=== PATIENT | male | born 1935 | race Caucasian/White ===

== ENCOUNTER 2019-07-16 05:50 | Day surgery (SDC) | payer MEDICARE ==
[2019-07-15 10:24] LABS: BASOPHILS % (AUTO) 0.5 % (0-1); EOSINOPHILS # (AUTO) 0.1 X10'3 (0-0.9); EOSINOPHILS % (AUTO) 1.9 % (0-6); HEMATOCRIT 42.1 % (42.0-52.0); HEMOGLOBIN 13.7 g/dl (14.0-17.9); LYMPHOCYTES # (AUTO) 1.3 X10'3 (1.1-4.8); MEAN CORPUSCULAR HEMOGLOBIN 29.3 PG (27.0-31.0); MEAN CORPUSCULAR HGB CONC 32.6 g/dL (33.0-36.5); MEAN CORPUSCULAR VOLUME 89.7 FL (78-98); MEAN PLATELET VOLUME 9.1 FL (7.4-10.4); MONOCYTES # (AUTO) 0.5 X10'3 (0-0.9); MONOCYTES % (AUTO) 8.2 % (2-12); NEUTROPHILS # (AUTO) 4.3 X10'3 (1.8-7.7); NEUTROPHILS % (AUTO) 68.4 % (42-75); PLATELET COUNT 215 X10'3 (140-440); RED BLOOD COUNT 4.69 X10'6 (4.70-6.10); RED CELL DISTRIBUTION WIDTH 14.4 % (11.5-14.5); WHITE BLOOD COUNT 6.3 X10'3 (4.5-11.0)
[2019-07-15 10:40] LABS: ALANINE AMINOTRANSFERASE 26 U/L (12-78); ALBUMIN 3.5 G/DL (3.4-5.0); ALKALINE PHOSPHATASE 112 IU/L (46-116); ANION GAP 5 (8-16); ASPARTATE AMINO TRANSFERASE 14 U/L (10-37); BILIRUBIN,TOTAL 0.5 MG/DL (0.1-1.0); BLOOD UREA NITROGEN 16 MG/DL (7-18); BUN/CREATININE RATIO 19.3 (5.4-32.0); CALCIUM 8.7 MG/DL (8.5-10.1); CHLORIDE 108 MMOL/L (99-107); CREATININE 0.83 MG/DL (0.60-1.10); GLUCOSE 138 MG/DL (70-104); PARTIAL THROMBOPLASTIN TIME 28 SECONDS (22-32); POTASSIUM 4.5 MMOL/L (3.5-5.1); SODIUM 140 MMOL/L (135-145); TOTAL CARBON DIOXIDE 27.3 MMOL/L (24-32); TOTAL PROTEIN 6.9 G/DL (6.4-8.2); eGFR 89 ML/MIN
[~2019-07-16] VITALS: Ht 172.7 cm; Wt 114.9 kg
[2019-07-16] VITALS (16 sets, daily range): BP systolic 103–150; BP diastolic 53–76
[2019-07-16] MEDS ORDERED: LOSA50TA3 PO (06:12)
[2019-07-16] MEDS ORDERED: METF1000 PO (06:12)
[2019-07-16] MEDS ORDERED: VITAMIN D (06:12)
[2019-07-16] MEDS ORDERED: AMLO10TA13 PO (06:12)
[2019-07-16] MEDS ORDERED: CARV3.12 PO (06:12)
[2019-07-16] MEDS ORDERED: ATOR40TA PO (06:12)
[2019-07-16] MEDS ORDERED: dextrose 50%-water 50ml dispensing syringe IV PRN ×2 (06:25)
[2019-07-16] MEDS ORDERED: insulin Lispro (HumaLOG) vial - multi-dose SQ SCH (06:25)
[2019-07-16] MEDS ORDERED: dextrose ORAL solution 15 GM/59 ML bottle PO PRN ×2 (06:25)
[2019-07-16] MEDS ORDERED: nitroGLYCERIN 0.4mg SUBLingual tab SL PRN ×2 (06:25→10:15)
[2019-07-16] MEDS ORDERED: glucagon, human recombinant 1mg kit SUBCUT PRN (06:25)
[2019-07-16] MEDS ORDERED: diphenhydrAMINE 25mg capsule PO PRN (06:30)
[2019-07-16] MEDS ORDERED: normal saline 1,000 ML IV SCH (06:30)
[2019-07-16] MEDS ORDERED: LORazepam 0.5 MG tablet PO PRN (06:30)
[2019-07-16] MEDS ORDERED: iohexol 350 MG/ML 50ML vial IV ONE ×2 (08:45→09:20)
[2019-07-16] MEDS ORDERED: LIDOcaine 1% (10mg/ml)w/preservative injection 20ml MDV ONE (08:45)
[2019-07-16] MEDS ORDERED: iohexol 350MG/ML 100ml bottle IV ONE (08:45)
[2019-07-16] MEDS ORDERED: midazolam 2 mg/2 ml injection ONE (08:45)
[2019-07-16] MEDS ORDERED: fentaNYL/PF 50MCG/1 ML 2ML syringe ONE (08:45)
[2019-07-16] MEDS ORDERED: heparin 1,000 UNITS/NS 500ml 500 ML ONE ×2 (08:46)
[2019-07-16] MEDS ORDERED: HYDROcodone/acetaminophen 5mg/325mg tablet PO PRN (10:15)
[2019-07-16] MEDS ORDERED: OXAZEpam 15mg capsule PO PRN (10:15)
[2019-07-16] MEDS ORDERED: ondansetron/PF 4mg/2ml inj IV PRN (10:15)
[2019-07-16] MEDS ORDERED: normal saline 1000ml 1,000 ML IV SCH (10:15)
[2019-07-16] MEDS ORDERED: HYDROcodone/acetaminophen 10/325mg tab PO PRN (10:15)
[2019-07-16] MEDS ORDERED: proCHLORperazine 10 MG/2 ml inj IV PRN (10:15)
--- NOTE | 2019-07-16 14:29 | NUR ---
Problems reprioritized. Patient report given, questions answered & plan of care reviewed with SARAY TINAJERO.
[2019-07-16] MEDS ORDERED: insulin glargine (Lantus) pen - multi-dose SQ SCH (21:00)
== END 2019-07-16 16:00 | disposition home or self-care (01) ==
LOC: SSTAY O 05:50
PROVIDERS: ATTEND Internal Medicine Cardiovascular Disease
DX: I25.10 Atherosclerotic heart disease of native coronary artery without angina pectoris (principal); I10 Essential (primary) hypertension; E11.9 Type 2 diabetes mellitus without complications; K21.9 Gastro-esophageal reflux disease without esophagitis; E78.5 Hyperlipidemia, unspecified; I47.1 Supraventricular tachycardia; M19.90 Unspecified osteoarthritis, unspecified site; E66.9 Obesity, unspecified; Z68.38 Body mass index [BMI] 38.0-38.9, adult; Z79.899 Other long term (current) drug therapy; Z79.84 Long term (current) use of oral hypoglycemic drugs; Z98.890 Other specified postprocedural states; Z79.01 Long term (current) use of anticoagulants
CPT/HCPCS: 36415; 71046; 80053; 82948; 83880; 84439; 84443; 84480; 85025; 85610; 85730; 93005; 93459; 93567; 99152; 99153; C1760; C1769; J1644; J2001; J2250; J3010; J7030; Q0163; Q9967; 93458; A4620; A6258

== ENCOUNTER 2022-07-26 09:26 | Day surgery (SDC) | payer MEDICARE ==
[2022-07-19 09:26] LABS: BASOPHILS % (AUTO) 0.4 % (0-1); EOSINOPHILS # (AUTO) 0.1 X10'3 (0-0.9); EOSINOPHILS % (AUTO) 1.1 % (0-6); HEMATOCRIT 43.7 % (42.0-52.0); HEMOGLOBIN 14.8 g/dl (14.0-17.9); LYMPHOCYTES # (AUTO) 1.1 X10'3 (1.1-4.8); LYMPHOCYTES % (AUTO) 14.6 % (21-51); MEAN CORPUSCULAR HEMOGLOBIN 30.5 PG (27.0-31.0); MEAN CORPUSCULAR HGB CONC 33.7 g/dL (33.0-36.5); MEAN CORPUSCULAR VOLUME 90.4 FL (78-98); MEAN PLATELET VOLUME 9.2 FL (7.4-10.4); MONOCYTES # (AUTO) 0.5 X10'3 (0-0.9); MONOCYTES % (AUTO) 6.5 % (2-12); NEUTROPHILS # (AUTO) 5.8 X10'3 (1.8-7.7); NEUTROPHILS % (AUTO) 77.4 % (42-75); PLATELET COUNT 178 X10'3 (140-440); RED BLOOD COUNT 4.84 X10'6 (4.70-6.10); RED CELL DISTRIBUTION WIDTH 15.2 % (11.5-14.5); WHITE BLOOD COUNT 7.5 X10'3 (4.5-11.0)
[2022-07-19 09:38] LABS: ALANINE AMINOTRANSFERASE 23 U/L (12-78); ALBUMIN 3.6 G/DL (3.4-5.0); ALBUMIN/GLOBULIN RATIO 1.1 (1.1-1.5); ALKALINE PHOSPHATASE 114 IU/L (46-116); ANION GAP 10 (8-16); ASPARTATE AMINO TRANSFERASE 17 U/L (10-37); BILIRUBIN,TOTAL 0.7 MG/DL (0.1-1.0); BLOOD UREA NITROGEN 13 MG/DL (7-18); BUN/CREATININE RATIO 14.6 (5.4-32.0); CALCIUM 8.6 MG/DL (8.5-10.1); CHLORIDE 109 MMOL/L (99-107); CREATININE 0.89 MG/DL (0.60-1.10); GLUCOSE 115 MG/DL (70-104); POTASSIUM 3.8 MMOL/L (3.5-5.1); SODIUM 142 MMOL/L (135-145); TOTAL CARBON DIOXIDE 22.6 MMOL/L (24-32); eGFR 81 ML/MIN
[2022-07-19 09:52] LABS: APTT 27 SECONDS (22-32)
[2022-07-19 10:49] LABS: ANISOCYTOSIS 2+; ELLIPTOCYTES FEW; GIANT PLATELET FEW; PLATELET ESTIMATE NORMAL
[~2022-07-26] VITALS: Ht 175.3 cm; Wt 105.9 kg
[2022-07-26] VITALS (12 sets, daily range): BP systolic 117–152; BP diastolic 67–88
[~2022-07-26 09:26] MED LIST: AMLO10TA13 PO; ATOR40TA PO; CARV3.12 PO; LOSA50TA3 PO; METF1000 PO; VITAMIN D
[2022-07-26] MEDS ORDERED: normal saline 1,000 ML IV SCH (09:45)
[2022-07-26] MEDS ORDERED: LORazepam 0.5 MG tablet PO PRN (09:45)
[2022-07-26] MEDS ORDERED: nitroGLYCERIN 0.4mg SUBLingual tab SL PRN ×2 (09:45→13:40)
[2022-07-26] MEDS ORDERED: diphenhydrAMINE 25mg capsule PO PRN (09:45)
[2022-07-26] MEDS ORDERED: CLOP75TA34 PO (10:38)
[2022-07-26] MEDS ORDERED: ASPI-1071 PO (10:38)
[2022-07-26] MEDS ORDERED: fentaNYL/PF 50MCG/1 ML 2ML syringe ONE (11:55)
[2022-07-26] MEDS ORDERED: midazolam 1 mg/ML 2ml injection ONE (11:55)
[2022-07-26] MEDS ORDERED: iohexol 350MG/ML 100ml bottle IV ONE ×2 (11:55)
[2022-07-26] MEDS ORDERED: LIDOcaine 1%/PF 5ML 10 MG/ML VIAL ONE (11:55)
[2022-07-26] MEDS ORDERED: ondansetron/PF 4mg/2ml inj IV PRN (13:40)
[2022-07-26] MEDS ORDERED: normal saline 1000ml 1,000 ML IV SCH (13:40)
[2022-07-26] MEDS ORDERED: HYDROcodone/acetaminophen 5mg/325mg tablet PO PRN (13:40)
[2022-07-26] MEDS ORDERED: OXAZEpam 15mg capsule PO PRN (13:40)
[2022-07-26] MEDS ORDERED: proCHLORperazine 10 MG/2 ml inj IV PRN (13:40)
[2022-07-26] MEDS ORDERED: HYDROcodone/acetaminophen 10/325mg tab PO PRN (13:40)
== END 2022-07-26 18:50 | disposition home or self-care (01) ==
LOC: SSTAY O 09:26
PROVIDERS: ATTEND Internal Medicine Cardiovascular Disease
DX: R94.39 Abnormal result of other cardiovascular function study (principal); I25.10 Atherosclerotic heart disease of native coronary artery without angina pectoris; F09 Unspecified mental disorder due to known physiological condition; I48.20 Chronic atrial fibrillation, unspecified; Z95.5 Presence of coronary angioplasty implant and graft; E78.5 Hyperlipidemia, unspecified; I10 Essential (primary) hypertension; I73.9 Peripheral vascular disease, unspecified; Z87.891 Personal history of nicotine dependence; Z79.899 Other long term (current) drug therapy; Z79.01 Long term (current) use of anticoagulants; Z98.890 Other specified postprocedural states
CPT/HCPCS: 36415; 71046; 80053; 82948; 85025; 85610; 85730; 93005; 93458; 99152; C1760; C1769; J1644; J2250; J3010; J3490; J7030; Q0163; Q9967; 85008; 99153; A4620; A6258